=== PATIENT | female | born 2000 | race Caucasian/White ===

== ENCOUNTER 2023-03-17 13:16 | Emergency (ER) | payer OTHER ==
[~2023-03-17] VITALS: Ht 175.3 cm; Wt 79.7 kg
[2023-03-17] MEDS ORDERED: OLOPATADINE 0.1% OPHTH SOL 5ML(PATANOL) OU STA (16:15)
[2023-03-17] MEDS ORDERED: FLUORESCEIN OPHTH 1MG STRIP OU ONE (16:15)
[2023-03-17] MEDS ORDERED: PROPARACAINE 0.5% OPHTH SOL 15ML OU ONE (16:15)
[2023-03-17] MEDS ORDERED: CIPR0.3S37 OP (17:15)
[2023-03-17] MEDS ORDERED: OLOP5DRO17 OP (17:15)
[2023-03-17 17:27] VITALS: BP 134/75; TEMP 98.9; O2SAT 100
== END 2023-03-17 17:28 | disposition home or self-care (01) ==
LOC: M ED 13:16
DX: H10.33 Unspecified acute conjunctivitis, bilateral (principal); Z77.098 Contact with and (suspected) exposure to other hazardous, chiefly nonmedicinal, chemicals; Z79.2 Long term (current) use of antibiotics; Z79.899 Other long term (current) drug therapy; Z88.1 Allergy status to other antibiotic agents